=== PATIENT | male | born 1990 | race African-American/Black ===

== ENCOUNTER 2017-04-24 04:05 | Emergency (ER) | payer OTHER ==
[~2017-04-24] VITALS: Ht 190.5 cm; Wt 120.7 kg
[2017-04-24 04:19] VITALS: Ht 190.5 cm; Wt 120.7 kg
[2017-04-24 05:11] VITALS: BP 165/109
== END 2017-04-24 05:11 | disposition home or self-care (01) ==
LOC: ED 04:05
DX: R35.8 Other polyuria (principal); R39.15 Urgency of urination

== ENCOUNTER 2017-05-04 18:48 | Emergency (ER) | payer OTHER ==
[2017-05-04 21:06] VITALS: BP 154/94
== END 2017-05-04 21:06 | disposition home or self-care (01) ==
LOC: ED 18:48
DX: F41.9 Anxiety disorder, unspecified (principal)
CPT/HCPCS: Q0092

== ENCOUNTER 2017-07-23 23:40 | Emergency (ER) | payer OTHER ==
[2017-07-23 23:58] VITALS: BP 168/91
== END 2017-07-24 01:03 | disposition home or self-care (01) ==
LOC: ED 23:40
DX: J01.90 Acute sinusitis, unspecified (principal); R07.89 Other chest pain; R42 Dizziness and giddiness
CPT/HCPCS: J1885

== ENCOUNTER 2017-09-23 06:06 | Emergency (ER) | payer OTHER ==
[~2017-09-23] VITALS: Ht 190.5 cm; Wt 108.0 kg
[2017-09-23 06:10] VITALS: Ht 190.5 cm; Wt 108.0 kg
[2017-09-23 08:05] VITALS: BP 156/93
== END 2017-09-23 08:59 | disposition home or self-care (01) ==
LOC: ED 06:06
DX: F41.9 Anxiety disorder, unspecified (principal); I10 Essential (primary) hypertension

== ENCOUNTER 2018-04-30 12:53 | Emergency (ER) | payer OTHER ==
[~2018-04-30] VITALS: Ht 188 cm; Wt 122.5 kg
[2018-04-30 13:01] VITALS: Ht 188 cm; Wt 122.5 kg
[2018-04-30 13:46] LABS: BASOPHIL % 0.4 % (0-2); PLATELET COUNT 203 x10^3mcL (130-400); RED CELL DISTRIBUTION WIDTH 12.5 % (11.5-14.5)
[2018-04-30 13:51] LABS: CALCIUM 9.5 mg/dL (8.5-10.1); CARBON DIOXIDE 26.7 mmol/L (21-32); CHLORIDE SERUM 100 mmol/L (98-107); CREATININE SERUM 1.2 mg/dL (0.7-1.3); GFR1 > 60 mL/min; GLUCOSE SERUM 103 mg/dL (74-106); POTASSIUM SERUM 3.5 mmol/L (3.5-5.1); SODIUM SERUM 137 mmol/L (136-145)
[2018-04-30 14:01] LABS: CK-MB 0.9 ng/mL (0-3.6)
[2018-04-30 14:04] LABS: ALBUMIN 4.2 g/dL (3.4-5.0); ALKALINE PHOSPHATASE 55 U/L (46-116); ALT/SGPT 78 U/L (16-63); AST/SGOT 36 U/L (15-37); BILIRUBIN TOTAL 0.4 mg/dL (0.20-1.00); T4(THYROXINE) 6.8 ug/dL (4.7-13.3)
[2018-04-30 14:12] LABS: TOTAL PROTEIN, SERUM 8.6 g/dL (6.4-8.2)
[2018-04-30 14:20] LABS: AMPHETAMINE QUAL UR NONE DETECTED (See below)
[2018-04-30] MEDS ORDERED: HYDROXYZINE HYD25 MG (15:17)
[2018-04-30] MEDS ORDERED: HYDROCHLOROTH12.5 M2 (15:17)
[2018-04-30 18:13] VITALS: BP 141/86
== END 2018-04-30 18:13 | disposition home or self-care (01) ==
LOC: ED 12:53
PROVIDERS: Emergency Medicine
DX: I48.91 Unspecified atrial fibrillation (principal); I10 Essential (primary) hypertension; F41.9 Anxiety disorder, unspecified
CPT/HCPCS: 83880; J3490

== ENCOUNTER 2019-03-16 01:33 | Emergency (ER) | payer OTHER ==
[~2019-03-16] VITALS: Ht 188 cm; Wt 128.8 kg
[~2019-03-16 01:33] MED LIST: HYDROCHLOROTH12.5 M2; HYDROXYZINE HYD25 MG
[2019-03-16 01:37] VITALS: Ht 188 cm; Wt 128.8 kg
[2019-03-16 02:53] LABS: CALCIUM 8.8 mg/dL (8.5-10.1); CARBON DIOXIDE 27.9 mmol/L (21-32); CHLORIDE SERUM 99 mmol/L (98-107); GFR1 > 60 mL/min; GLUCOSE SERUM 107 mg/dL (74-106); POTASSIUM SERUM 3.4 mmol/L (3.5-5.1); SODIUM SERUM 135 mmol/L (136-145)
[2019-03-16 02:54] LABS: BASOPHIL % 0.5 % (0-2); PLATELET COUNT 188 x10^3mcL (130-400); RED CELL DISTRIBUTION WIDTH 12.5 % (11.5-14.5)
[2019-03-16 02:59] LABS: ALBUMIN 3.7 g/dL (3.4-5.0); ALKALINE PHOSPHATASE 65 U/L (46-116); ALT/SGPT 59 U/L (16-63); AST/SGOT 21 U/L (15-37); BILIRUBIN TOTAL 0.43 mg/dL (0.20-1.00); LIPASE 225 IU/L (73-393); TOTAL PROTEIN, SERUM 7.9 g/dL (6.4-8.2)
[2019-03-16 03:45] VITALS: BP 134/77
== END 2019-03-16 03:45 | disposition home or self-care (01) ==
LOC: ED 01:33
PROVIDERS: Emergency Medicine
DX: R10.814 Left lower quadrant abdominal tenderness (principal); I10 Essential (primary) hypertension; F41.9 Anxiety disorder, unspecified
CPT/HCPCS: J1885; J7030

== ENCOUNTER 2019-05-22 14:49 | Emergency (ER) | payer OTHER ==
[~2019-05-22] VITALS: Ht 188 cm; Wt 131.5 kg
[2019-05-22 14:54] VITALS: Ht 188 cm; Wt 131.5 kg
[2019-05-22 15:15] VITALS: BP 159/95
== END 2019-05-22 15:15 | disposition home or self-care (01) ==
LOC: ED 14:49
DX: R20.2 Paresthesia of skin (principal); I10 Essential (primary) hypertension

== ENCOUNTER 2019-12-01 20:02 | Emergency (ER) | payer OTHER ==
[~2019-12-01] VITALS: Ht 188 cm; Wt 131.5 kg
[2019-12-01 20:08] VITALS: Ht 188 cm; Wt 131.5 kg
[2019-12-01 20:56] VITALS: BP 149/97
== END 2019-12-01 20:56 | disposition home or self-care (01) ==
LOC: ED 20:02
DX: L73.9 Follicular disorder, unspecified (principal); I10 Essential (primary) hypertension

== ENCOUNTER 2019-12-18 15:54 | Emergency (ER) | payer OTHER ==
[~2019-12-18] VITALS: Ht 188 cm; Wt 132.9 kg
[2019-12-18 15:59] VITALS: BP 152/101
== END 2019-12-18 16:52 | disposition home or self-care (01) ==
LOC: ED 15:54
DX: N48.89 Other specified disorders of penis (principal); I10 Essential (primary) hypertension; Z98.890 Other specified postprocedural states

== ENCOUNTER 2020-01-24 09:25 | Emergency (ER) | payer OTHER ==
[~2020-01-24] VITALS: Ht 188 cm; Wt 132.4 kg
[2020-01-24 09:28] VITALS: Ht 188 cm; Wt 132.4 kg
[2020-01-24 10:45] VITALS: BP 133/88
== END 2020-01-24 10:30 | disposition home or self-care (01) ==
LOC: ED 09:25
DX: S40.012A Contusion of left shoulder, initial encounter (principal); I10 Essential (primary) hypertension; X58.XXXA Exposure to other specified factors, initial encounter; Y93.89 Activity, other specified; Y92.89 Other specified places as the place of occurrence of the external cause; Y99.8 Other external cause status
CPT/HCPCS: Q0092

== ENCOUNTER 2020-03-08 18:32 | Emergency (ER) | payer OTHER ==
[~2020-03-08] VITALS: Ht 188 cm; Wt 127.0 kg
[2020-03-08 18:35] VITALS: BP 144/92; Ht 188 cm; Wt 127.0 kg
== END 2020-03-08 18:50 | disposition left against medical advice (07) ==
LOC: ED 18:32
DX: Z53.21 Procedure and treatment not carried out due to patient leaving prior to being seen by health care provider (principal)

== ENCOUNTER 2020-03-11 13:22 | Emergency (ER) | payer OTHER ==
[~2020-03-11] VITALS: Ht 188 cm; Wt 132.4 kg
[2020-03-11 14:02] VITALS: BP 142/82
== END 2020-03-11 14:02 | disposition home or self-care (01) ==
LOC: ED 13:22
DX: L72.3 Sebaceous cyst (principal); I10 Essential (primary) hypertension; Z98.890 Other specified postprocedural states